=== PATIENT | male | born 1980 | race African-American/Black ===

== ENCOUNTER 2021-04-15 10:06 | Emergency (ER) | payer OTHER, SELFPAY ==
--- NOTE | 2021-04-15 10:14 | ED.URI ---
HPI - URI/Sore Throat General Chief Complaint: Upper Respiratory Infection Stated Complaint: uri Time Seen by Provider: 04/15/21 10:14 Source: patient Mode of arrival: ambulatory Limitations: no limitations History of Present Illness HPI Narrative: 40-year-old male presents with complaints of runny nose, nasal congestion, sinus pressure x1 day. Started Claritin today. No other symptoms. Was sent home from work yesterday because they told him that he looked bad and was told that he needed a Covid test to return. All systems reviewed and negative except as noted above. Related Data Home Medications Medication Instructions Recorded Confirmed albuterol sulfate 90 mcg INHALATION DIRECTED PRN 04/15/21 04/15/21 amitriptyline 25 mg DIRECTED 04/15/21 04/15/21 budesonide-formoterol [Symbicort] 160 inh INHALATION DIRECTED 04/15/21 04/15/21 rosuvastatin 10 mg DIRECTED 04/15/21 04/15/21 Allergies Allergy/AdvReac Type Severity Reaction Status Date / Time No Known Allergies Allergy Unverified 09/26/15 13:45 Review of Systems Review of Systems: CONSTITUTIONAL: Denies fever, chills, or sweats. EYES: Denies visual changes, redness, or discharge. ENT: Reports rhinorrhea, congestion, sinus pressure. Denies sore throat, or otalgia. CARDIOVASCULAR: Denies chest pain, palpitations, or edema. RESPIRATORY: Denies cough or dyspnea. GASTROINTESTINAL: Denies abdominal pain, nausea, vomiting, or diarrhea. GENITOURINARY: Denies dysuria or hematuria. SKIN: Denies rash or itching. MUSCULOSKELETAL: Denies back pain, joint pain, or myalgia. NEUROLOGIC: Denies headache, numbness, or weakness. PSYCHIATRIC: Denies anxiety or depression. All other systems reviewed are negative, except as documented in HPI. PMFSH Comments At time of signature, agree with nursing past medical, surgical, social and family history. There is no relevant family history pertinent to the presenting complaint. Exam Narrative: GENERAL: This is a well-nourished, well-developed patient, in no apparent distress. HEAD: normocephalic, atraumatic. EYES: PERRL. Sclera clear/white. Vision is grossly intact. EARS: External ears normal, auditory canals clear and without drainage, TMs normal without perforation. Hearing grossly intact. NOSE: External nose normal with clear nasal drainage, mild erythema to both naris. No sinus pressure. THROAT: Mucous membranes moist, posterior pharynx clear. NECK: Neck supple, non-tender without lymphadenopathy, masses or thyromegaly. CARDIOVASCULAR: Regular rate and rhythm without murmurs, gallops, or rubs. RESPIRATORY: Clear to auscultation. Breath sounds equal bilaterally. No wheezes, rales, or rhonchi. GASTROINTESTINAL: Abdomen soft, non-tender, nondistended. Bowel sounds are active. No hepato-splenomegaly, or palpable masses. No guarding. SKIN: warm, Dry, intact with no suspicious lesions or rash, good texture and turgor. NEURO: awake, alert, and oriented to person, place and time. There were no obvious focal neurologic abnormalities. EXTREMITIES: No joint tenderness, effusion, or edema noted. No calf tenderness. Negative Homans sign bilaterally. BACK: Nontender without deformity. No CVA tenderness. Course Course Level of Care: Express Care Visit Vital Signs Vital signs: Vital Signs Temperature 36.9 C 04/15/21 10:15 Pulse Rate 89 04/15/21 10:15 Respiratory Rate 16 04/15/21 10:15 Blood Pressure 142/94 H 04/15/21 10:15 Pulse Oximetry 99 04/15/21 10:15 Temperature 36.9 C 04/15/21 10:15 Pulse Rate 89 04/15/21 10:15 Respiratory Rate 16 04/15/21 10:15 Blood Pressure 142/94 H 04/15/21 10:15 Pulse Oximetry 99 04/15/21 10:15 Reviewed MDM - URI/Sore Throat MDM Narrative Medical decision making narrative: Patient is aware of diagnosis, understands and agrees to treatment plan. Anticipatory guidance given. Patient agrees to follow-up as directed and is aware of reasons to seek care at the emergency depa
[2021-04-15 10:15] VITALS: BP 142/94; PULSE 89; RESP 16; TEMP 36.9; O2SAT 99
== END 2021-04-15 10:56 | disposition home or self-care (01) ==
PROVIDERS: Emergency Provider Nurse Practitioner Family; PCP Family Medicine
DX: J01.90 Acute sinusitis, unspecified (principal); Z20.822 Contact with and (suspected) exposure to COVID-19; E78.00 Pure hypercholesterolemia, unspecified; Z86.16 Personal history of COVID-19
CPT/HCPCS: 87426; 99213; C9803; G0463

== ENCOUNTER 2023-12-23 04:49 | Day surgery (SDC) | payer OTHER, SELFPAY ==
[2023-12-13 14:49] VITALS: BMI 33.9
--- NOTE | 2023-12-23 11:04 | SUR.PREOP ---
PT STATES HE DOES NOT TAKE ANY OF HIS MEDICATIONS PRESCRIBED.
[2023-12-23 11:05] VITALS: BP 120/82; PULSE 64; RESP 18; TEMP 35.8; O2SAT 99
--- NOTE | 2023-12-23 11:29 | WPDANESEPPF ---
Anes - Initial Pre Proc Eval Procedure: Operation Date: 12/23/23 12:30 Proposed Procedures p Colonoscopy - Haresh Bishop MD Date/Time: 12/23/23 11:29 Surgeon: Haresh Bishop MD Pre Op Diagnosis: melena Patient Data Age: 43 Gender: M Height: 1.83 m Weight: 112 kg Last Vital Signs Temp 96.5 F L 12/23/23 11:05 Pulse 64 12/23/23 11:05 Resp 18 12/23/23 11:05 BP 120/82 12/23/23 11:05 Pulse Ox 99 12/23/23 11:05 O2 Del Method Room Air 12/23/23 11:05 Allergies Allergy/AdvReac Type Severity Reaction Status Date / Time No Known Allergies Allergy Verified 12/23/23 11:01 Home Medications Medication Instructions Recorded Confirmed Type albuterol sulfate 90 mcg/actuation 90 mcg inhalation DIRECTED PRN 04/15/21 12/23/23 History aerosol inhaler Shortness Of Breath rosuvastatin 10 mg tablet 10 mg PO DAILY 04/15/21 12/23/23 History dapagliflozin propanediol 10 mg 10 mg PO DAILY 11/10/23 12/23/23 History tablet (Farxiga) budesonide-formoterol HFA 160 2 puff inhalation BID 12/13/23 12/23/23 History mcg-4.5 mcg/actuation aerosol inhaler (Symbicort) gabapentin 300 mg capsule 300 mg PO DAILY PRN nerve pain 12/13/23 12/23/23 History tiotropium bromide 2.5 2 puff inhalation DAILY 12/13/23 12/23/23 History mcg/actuation mist for inhalation (Spiriva Respimat) Patient hx anesthesia problems: none Family hx anesthesia problems: none Results Review: All pre-operative results and documents have been reviewed as part of the pre-operative evaluation. FOR[facility]LY [facility] Past Medical History Medical History CKD (chronic kidney disease) Dyslipidemia Obesity Sleep apnea Social History Social History Smoking status: Former smoker Tobacco type: cigarettes Alcohol intake: never Substance use: current Substance use type: marijuana Living arrangements: alone Spiritual care concerns: No Anes - Eval Final PreProcedure Day of Procedure 12/23/23 11:29 Patient weight: obese Heart: regular rate and rhythm Lungs: clear to auscultation Airway: Mallampati scale class II Neurological: alert and oriented Last oral intake: >/= 8 hours ASA classification: III Emergent: no Anesthetic plan: proceed Anesthesia type and monitoring: general GIVS and standard monitoring Results Review: All pre-operative results and documents have been reviewed as part of the pre-operative evaluation. Hyperlipidemia, not on meds for 1 month, JENA but not yet on CPAP. Pt can walk 1-2 fos, no cp or sob. Informed Consent: The patient's anesthetic plan and its attendant risks and benefits were discussed with the patient/family/POA. Questions were solicited and answers provided to the satisfaction of the patient/family/POA.
[2023-12-23] MEDS: LACTATED RINGERS 1,000 ML 150 ML IV CONT (11:32)
--- NOTE | 2023-12-23 12:20 | PM.HPGS ---
History of Present Illness History of Present Illness Consent: Risks, benefits, and alternatives have been discussed and questions answered. Patient agrees to proceed with procedure. Chief complaint: melena Narrative: Anoop Garcia is a 43 year old male here for colonoscopy because blood in stools Review of Systems Review of Systems: All systems reviewed & are unremarkable except as noted in HPI and below PMFSH Past Medical History Medical History (Updated 12/23/23 @ 12:20 by Haresh Bishop MD) Blood in stool CKD (chronic kidney disease) Dyslipidemia Obesity Sleep apnea Social History Social History Smoking status: Former smoker Tobacco type: cigarettes Alcohol intake: never Substance use: current Substance use type: marijuana Living arrangements: alone Spiritual care concerns: No Meds Home Medications and Allergies Home Medications Medication Instructions Recorded Confirmed Type albuterol sulfate 90 mcg/actuation 90 mcg inhalation DIRECTED PRN 04/15/21 12/23/23 History aerosol inhaler Shortness Of Breath rosuvastatin 10 mg tablet 10 mg PO DAILY 04/15/21 12/23/23 History dapagliflozin propanediol 10 mg 10 mg PO DAILY 11/10/23 12/23/23 History tablet (Farxiga) budesonide-formoterol HFA 160 2 puff inhalation BID 12/13/23 12/23/23 History mcg-4.5 mcg/actuation aerosol inhaler (Symbicort) gabapentin 300 mg capsule 300 mg PO DAILY PRN nerve pain 12/13/23 12/23/23 History tiotropium bromide 2.5 2 puff inhalation DAILY 12/13/23 12/23/23 History mcg/actuation mist for inhalation (Spiriva Respimat) Allergies Allergy/AdvReac Type Severity Reaction Status Date / Time No Known Allergies Allergy Verified 12/23/23 11:01 Vital Signs Vital Signs - 24 hr 12/23/23 11:05 Temperature 96.5 F L Pulse Rate 64 Respiratory Rate 18 Blood Pressure 120/82 Pulse Oximetry 99 Oxygen Delivery Room Air Exam Const: General: comfortable and no acute distress HENMT: Face/Nose/Sinus: Normal nares present Eyes: General: appearance normal, both eyes and all related structures Neck: Neck: no JVD Resp: Auscultation: clear to auscultation bilaterally Cardio: Rate: regular rate Rhythm: regular rhythm GI: Inspection: non-distended GI Palp: Yes Soft to palpation Skin: General skin exam: normal color Neuro: General: gait normal Speech: normal speech Extrem: General: normal to inspection Psych: Mental Status: mental status grossly normal Assessment and Plan Assessment and plan (1) Blood in stool: Code(s): K92.1 - Melena Status: Acute Assessment and Plan: colonoscopy
[2023-12-23 12:33] VITALS: BP 101/72; PULSE 81; RESP 18; O2SAT 97
[2023-12-23 12:43] VITALS: BP 110/79; PULSE 69; RESP 18; O2SAT 100
[2023-12-23 12:53] VITALS: BP 110/79; PULSE 69; RESP 18; O2SAT 100
== END 2023-12-23 13:03 | disposition home or self-care (01) ==
PROVIDERS: PCP Family Medicine; Referring Provider Nurse Practitioner; Visit Provider Internal Medicine Gastroenterology
PROC: 0DJD8ZZ Inspection of Lower Intestinal Tract, Via Natural or Artificial Opening Endoscopic (ICD-10-PCS; CPT 45378; principal; 2023-12-23 12:30)
DX: K92.1 Melena (principal); K63.5 Polyp of colon; K64.8 Other hemorrhoids; K57.30 Diverticulosis of large intestine without perforation or abscess without bleeding; N18.9 Chronic kidney disease, unspecified; E78.5 Hyperlipidemia, unspecified; G47.30 Sleep apnea, unspecified; E66.9 Obesity, unspecified; Z68.33 Body mass index [BMI] 33.0-33.9, adult; Z87.891 Personal history of nicotine dependence; F12.90 Cannabis use, unspecified, uncomplicated; Z79.84 Long term (current) use of oral hypoglycemic drugs; Z79.51 Long term (current) use of inhaled steroids
CPT/HCPCS: 45385; 88305; J2003; J2704; J7120